=== PATIENT | female | born 1995 ===

== ENCOUNTER 2018-03-16 18:36 | Emergency (ER) | payer MEDICAID, OTHER ==
[2018-03-16 18:41] VITALS: BMI 21.9
[2018-03-16 18:42] VITALS: RESP 18; TEMP 98.4
--- NOTE | 2018-03-16 19:04 | ED PDOC ---
Arrival/HPI - General Chief Complaint: Female Genitourinary Time Seen by Provider: 03/16/18 18:50 Historian: Patient - History of Present Illness Time/Duration: Other (2 days) Symptom Onset: Gradual Symptom Course: Unchanged Quality: Aching Severity Level: Mild Activities at Onset: Rest Associated Symptoms (Text): 03/16/18 19:01 Patient complains of a 2 day history of dysuria frequency and mild hematuria. She developed some right flank pain today. No abdominal pain nausea vomiting or diarrhea. No radiation of the pain. No fever or chills. She has never experienced this previously. LMP is one month ago. She appears comfortable and in no distress. She does not need pain medication at this time. Past Medical History - Infectious Disease Hx of Infectious Diseases: None - Genitourinary/Gynecological Hx Urinary Tract Infection: Yes - Psychiatric Hx Substance Use: No - Anesthesia Hx Anesthesia: No Family/Social History - Physician Review Nursing Documentation Reviewed: Yes Family/Social History: Unknown Family HX Smoking Status: Never Smoked Hx Alcohol Use: Yes Frequency of alcohol use: Socially Hx Substance Use: No Allergies/Home Meds Allergies/Adverse Reactions: Allergies No Known Allergies Allergy (Verified 03/16/18 18:41) Review of Systems - Physician Review All systems were reviewed & negative as marked: Yes - Review of Systems Constitutional: absent: Fatigue, Fevers Respiratory: Normal Cardiovascular: Normal Gastrointestinal: Normal Genitourinary Female: Dysuria, Frequency, Hematuria. absent: Vaginal Bleeding, Vaginal Discharge Physical Exam Vital Signs Temp Pulse Resp BP Pulse Ox 03/16/18 18:42 98.4 F 102 H 18 118/77 100 Temperature: Afebrile Blood Pressure: Normal Pulse: Regular Respiratory Rate: Normal Appearance: Positive for: Well-Appearing, Non-Toxic, Comfortable Pain Distress: None Mental Status: Positive for: Alert and Oriented X 3 - Systems Exam Head: Present: Atraumatic, Normocephalic Neck: Present: Normal Range of Motion Respiratory/Chest: Present: Clear to Auscultation, Good Air Exchange. No: Respiratory Distress, Accessory Muscle Use Cardiovascular: Present: Regular Rate and Rhythm, Normal S1, S2. No: Murmurs Abdomen: Present: Normal Bowel Sounds, Other (no CVA tenderness). No: Tenderness, Distention, Peritoneal Signs, Rebound, Guarding Back: Present: Normal Inspection. No: CVA Tenderness, Midline Tenderness, Paraspinal Tenderness Upper Extremity: Present: Normal Inspection. No: Cyanosis, Edema Lower Extremity: Present: Normal Inspection. No: Edema Neurological: Present: GCS=15, CN II-XII Intact, Speech Normal, Motor Func Grossly Intact Skin: Present: Warm, Dry, Normal Color. No: Rashes Psychiatric: Present: Alert, Oriented x 3, Normal Insight, Normal Concentration Medical Decision Making ED Course and Treatment: 03/16/18 19:03 Probable UTI. Will get CT scan to rule out nephrolithiasis. - RAD Interpretation Narrative RAD Interpretations (Text): 03/16/18 20:40 CT abd/pelvis reviewed, shows: IMPRESSION: 1. Small fat-containing umbilical hernia is noted. 2. Appendix is not identified. There is no evidence of acute appendicitis. 3. Small amount of fluid in the cul-de-sac. 4. Bladder wall thickening is noted measuring up to 7 mm, consistent with cystitis. Radiology Orders: 03/16/18 18:59 ABD & PELVIS W/O PO OR IV CONT [CT] Stat - Scribe Statement The provider has reviewed the documentation as recorded by the Scribbismark Muniz All medical record entries made by the Scribe were at my direction and personally dictated by me. I have reviewed the chart and agree that the record accurately reflects my personal performance of the history, physical exam, medical decision making, and the department course for this patient. I have also personally directed, reviewed, and agree with the discharge instructions and disposition. Disposition/Present on Arrival - Present on Arrival Any Indicators Present on Arrival: No History of DVT/PE: No History of Uncontrolled Diabetes: No Urinary Catheter: No History of Decub. Ulcer: No History Surgical Site Infection Following: None - Disposition Have Diagnosis and Disposition been Completed?: Yes Diagnosis: Urinary tract infection, Leukocytosis Disposition: HOME/ ROUTINE Disposition Time: 20:42 Patient Plan: Discharge Condition: GOOD Discharge Instructions (ExitCare): Urinary Tract Infections in Adults Additional Instructions: symptomatic treatment. Tylenol or Advil as directed on bottle as needed. Follow-up with PMD. Follow up in ER as needed. Prescriptions: Sulfamethoxazole/Trimethoprim [Bactrim DS 800 mg-160 mg] 1 tab PO BID #14 tab Phenazopyridine HCl [Pyridium] 200 mg PO Q8 #9 tablet Referrals: PCP,NO [Primary Care Provider] - Follow up with primary Forms: [facility] ([place]), WORK NOTE
[2018-03-16 19:25] LABS: BASO # 0.02 K/mm3 (0.0-2.0); BASO % 0.2 % (0.0-3.0); EOS # 0.1 (0.0-0.7); GRAN # 9.59 (1.4-6.5); GRAN % 73.5 % (50.0-68.0); HEMOGLOBIN 13.7 g/dL (12.0-16.0); LYMPH # 2.3 (1.2-3.4); LYMPH % 17.5 % (22.0-35.0); MEAN CELL VOLUME 85.3 fl (80.0-105.0); MEAN CORPUSCULAR HEMOGLOBIN 28.7 pg (25.0-35.0); MEAN CORPUSCULAR HGB CONC 33.7 g/dl (31.0-37.0); MEAN PLATELET VOLUME 9.1 fl (7.0-11.0); MONO % 7.8 % (1.0-6.0); RBC 4.77 10^6/uL (3.5-6.1); RED CELL DISTRIBUTION WIDTH 12.8 % (11.5-14.5)
[2018-03-16 19:36] LABS: ALB/GLOB RATIO 1.3 (1.1-1.8); ALBUMIN 4.3 g/dL (3.0-4.8); ALT/SGPT 21 U/L (7-56); AST/SGOT 23 U/L (14-36); BLOOD UREA NITROGEN 10 mg/dL (7-21); CALCIUM 8.8 mg/dL (8.4-10.5); GFR NON-AFRICAN AMERICAN > 60; LIPASE 87 U/L (23-300)
[2018-03-16 19:48] LABS: URINE BILIRUBIN NEGATIVE (NEGATIVE); URINE BLOOD LARGE (NEGATIVE); URINE GLUCOSE (UA) NEGATIVE (NEGATIVE); URINE LEUKOCYTE ESTERASE SMALL Leu/uL (NEGATIVE); URINE PROTEIN 100 mg/dL (<30 mg/dL); URINE UROBILINOGEN 0.2 E.U./dL (<1 E.U./dL)
[2018-03-16 19:50] LABS: URINE APPEARANCE CLOUDY (CLEAR); URINE COLOR DARK YELLOW (YELLOW)
[2018-03-16 19:57] LABS: URINE BACTERIA MOD (NEG); URINE RBC 20 - 25 /hpf (0-2); URINE WBC 15 - 20 /hpf (0-6)
[2018-03-16] MEDS ORDERED: Tmp-Smz 800 mg-160 mg DS Tab PO STA (20:02)
[2018-03-16 20:45] VITALS: BP 103/64; O2SAT 99
[2018-03-16 20:46] VITALS: PULSE 96
--- NOTE | 2018-03-17 10:15 | CT ---
Date of service: 03/16/2018 PROCEDURE: CT Abdomen and Pelvis without intravenous contrast HISTORY: right stone run COMPARISON: None. TECHNIQUE: Without contrast.. Contrast dose: Radiation dose: Total exam DLP = 283.3 mGy-cm. This CT exam was performed using one or more of the following dose reduction techniques: Automated exposure control, adjustment of the mA and/or kV according to patient size, and/or use of iterative reconstruction technique. FINDINGS: LOWER THORAX: Unremarkable. LIVER: Unremarkable. No gross lesion or ductal dilatation. GALLBLADDER AND BILE DUCTS: Unremarkable. PANCREAS: Unremarkable. No gross lesion or ductal dilatation. SPLEEN: Unremarkable. ADRENALS: Unremarkable. No mass. KIDNEYS AND URETERS: Unremarkable. No hydronephrosis. No solid mass. VASCULATURE: Unremarkable. No aortic aneurysm. No aortic atherosclerotic calcification or mural plaque present. BOWEL: Unremarkable. No obstruction. No gross mural thickening. APPENDIX: Not visualized PERITONEUM: Small amount of free fluid LYMPH NODES: Unremarkable. No enlarged lymph nodes. BLADDER: Mild bladder wall thickening. This could be due to lack of distension. Cystitis cannot be excluded REPRODUCTIVE: Unremarkable. BONES: No acute fracture. OTHER FINDINGS: The report concurs with the preliminary [facility] report IMPRESSION: Mild bladder wall thickening. This could be due to lack of distension. Cystitis cannot be excluded No evidence of urolithiasis
== END 2018-03-16 21:05 | disposition home or self-care (01) ==
LOC: ED 18:36
DX: N39.0 Urinary tract infection, site not specified (principal); D72.829 Elevated white blood cell count, unspecified